=== PATIENT | female | born 1985 | race Caucasian/White ===

== ENCOUNTER 2017-03-02 19:53 | Emergency (ER) | payer SELFPAY ==
[~2017-03-02] VITALS: Ht 162.6 cm; Wt 56.7 kg
[2017-03-02 20:13] VITALS: BP 120/74
--- NOTE | 2017-03-02 20:59 | NUR ---
PT TAKEN TO BED 4
--- NOTE | 2017-03-02 21:07 | NUR ---
32 Y/O F W/C/O 5 WEEKS W/ AB PAIN X 6 DAYS 04/28. PT STATES SHE HAS BEING SPOTING BLOOD, BUT DENIES ANY HEAVY BLEEDING. ER MADE AWARE.
--- NOTE | 2017-03-02 21:30 | NUR ---
Dr. Peguero evaluating patient at bedside.
--- NOTE | 2017-03-02 21:47 | NUR ---
PT TAKEN TO ULTRASOUND
[2017-03-02 21:54] LABS: BASOPHILS # (AUTO) 0.2 K/uL (0.00-0.22); BASOPHILS % (AUTO) 1.6 % (0.0-2.0); EOSINOPHILS # (AUTO) 0.1 K/uL (0-0.4); EOSINOPHILS % (AUTO) 1.5 % (0.0-4.0); HEMATOCRIT 43.6 % (36-48); HEMOGLOBIN 14.2 g/dL (12.0-16.0); LYMPHOCYTES # (AUTO) 3.3 K/uL (2.5-16.5); LYMPHOCYTES % (AUTO) 34.9 % (20.5-51.1); MEAN CORPUSCULAR HEMOGLOBIN 29 pg (27-31); MEAN CORPUSCULAR HGB CONC 33 g/dL (33-37); MEAN CORPUSCULAR VOLUME 89 fL (80-94); MONOCYTES # (AUTO) 0.5 K/uL (0.8-1.0); MONOCYTES % (AUTO) 5.7 % (1.7-9.3); NEUTROPHILS # (AUTO) 5.3 K/uL (1.8-7.7); NEUTROPHILS % (AUTO) 56.3 % (42.2-75.2); PLATELET COUNT (AUTO) 246 K/uL (140-450); RED BLOOD CELL COUNT(AUTO) 4.88 MIL/uL (4.20-5.40); RED CELL DISTRIBUTION WIDTH 12.6 % (11.6-13.7); WHITE BLOOD COUNT (AUTO) 9.4 K/uL (4.8-10.8)
[2017-03-02 21:54] LABS: APPEARANCE,URINE CLEAR (CLEAR); BILIRUBIN,URINE NEGATIVE (NEGATIVE); BLOOD, URINE 1+ (NEGATIVE); COLOR,URINE YELLOW (YELLOW); LEUKOCYTE ESTERASE ,URINE NEGATIVE (NEGATIVE); NITRITE, URINE NEGATIVE (NEGATIVE); PH,URINE 6.5 (5.0-9.0); PROTEIN,URINE NEGATIVE (NEGATIVE); UGLUCOSE NEGATIVE (NEGATIVE); UROBILINOGEN,URINE 0.2 EU/dL (0.2 - 1)
[2017-03-02 22:06] LABS: BACTERIA,URINE 2+ /HPF (None Seen); RBC,URINE 0-3 /HPF (0-5); WBC,URINE 0-3 /HPF (0-5)
--- NOTE | 2017-03-02 22:12 | NUR ---
PT RETURN FROM ULTRASOUND
[2017-03-02 22:18] LABS: ALBUMIN 4.1 g/dL (3.4-5.0); ANION GAP 12.4 (8-16); CALCIUM 9.1 mg/dL (8.5-10.1); CARBON DIOXIDE 27.1 mmol/L (21-32); CREATININE 0.7 mg/dL (0.6-1.3); POTASSIUM 3.5 mmol/L (3.5-5.1); TOTAL BILIRUBIN 0.3 mg/dL (0.0-1.0); TOTAL PROTEIN, SERUM 7.6 g/dL (6.4-8.2)
[2017-03-02 23:03] VITALS: BP 104/69
--- NOTE | 2017-03-02 23:03 | NUR ---
Patient discharged BY DR ASENCIO with v/s stable. Written and verbal after care instructions given and explained BY ER MD.Patient verbalized understanding. Ambulatory with steady gait. All questions addressed prior to discharge. Advised to follow up with PMD NEXT WEEK.
== END 2017-03-02 23:03 | disposition home or self-care (01) ==
LOC: MED 19:53
DX: O20.0 Threatened abortion (principal); Z3A.01 Less than 8 weeks gestation of pregnancy
CPT/HCPCS: 36415; 76801; 80053; 81001; 81025; 84702; 85025; 86900; 86901; 87086; 99285; Q0092